=== PATIENT | male | born 1965 | race Caucasian/White ===

== ENCOUNTER 2018-06-14 15:17 | Emergency (ER) | payer SELFPAY ==
[~2018-06-14] VITALS: Ht 167.6 cm; Wt 85.4 kg
[2018-06-14 16:46] LABS: BASOPHIL % 0.8 % (0-2); PLATELET COUNT 246 x10^3mcL (130-400); RED CELL DISTRIBUTION WIDTH 14.2 % (11.5-14.5)
[2018-06-14 16:57] LABS: CALCIUM 8.7 mg/dL (8.5-10.1); CARBON DIOXIDE 33.7 mmol/L (21-32); CHLORIDE SERUM 105 mmol/L (98-107); CREATININE SERUM 0.8 mg/dL (0.7-1.3); GFR1 > 60 mL/min; GLUCOSE SERUM 89 mg/dL (74-106); POTASSIUM SERUM 3.6 mmol/L (3.5-5.1); SODIUM SERUM 144 mmol/L (136-145)
[2018-06-14 17:01] LABS: ALKALINE PHOSPHATASE 83 U/L (46-116); ALT/SGPT 41 U/L (16-63); AST/SGOT 25 U/L (15-37); BILIRUBIN TOTAL 0.4 mg/dL (0.20-1.00); CHOLESTEROL 192 mg/dL (<200); HDL CHOLESTEROL 41 mg/dL (40-60); PHOSPHOROUS 3.6 mg/dL (2.5-4.9); TOTAL PROTEIN, SERUM 7.7 g/dL (6.4-8.2); URIC ACID 5.4 mg/dL (3.5-7.2)
[2018-06-14 18:20] VITALS: BP 122/73
== END 2018-06-14 18:20 | disposition home or self-care (01) ==
LOC: ED 15:17
PROVIDERS: Emergency Medicine
DX: R55 Syncope and collapse (principal)
CPT/HCPCS: 36415